=== PATIENT | female | born 2000 | race Caucasian/White ===

== ENCOUNTER 2020-01-22 18:49 | Inpatient (IN) | payer OTHER ==
[2020-01-22] MEDS ORDERED: TERBUTALINE 1 MG/ML VIAL SQ PRN (19:26)
[2020-01-22] MEDS ORDERED: LIDOCAINE 0.5% (PF) 5 MG/ML (50 ML SDV) SQ PRN (19:26)
[2020-01-22] MEDS ORDERED: OXYTOCIN 10 UNIT/ML 1 ML VIAL IM PRN (19:26)
[2020-01-22] MEDS ORDERED: CARBOPROST TROMETHAMINE 250 MCG/ML 1 ML AMP IM PRN (19:26)
[2020-01-22] MEDS ORDERED: METHYLERGONOVINE 0.2 MG/ML 1 ML AMP IM PRN (19:26)
[2020-01-22] MEDS ORDERED: LACTATED RINGERS 1,000 ML IV SCH (19:30)
[2020-01-22 19:36] LABS: Basophils % (A) 0 %; Eosinophils # (A) 0.2 k/uL (0-0.7); Eosinophils % (A) 1 %; HCT 36.3 % (34.0-46.0); Lymphocytes # (A) 1.4 k/uL (1.0-4.8); Lymphocytes % (A) 12 %; MCH 29.4 pg (25.0-35.0); MCV 88.9 fL (80.0-100.0); Mean Platelet Volume 7.1; Monocytes # (A) 0.2 k/uL (0-1.0); Monocytes % (A) 2 %; Neutrophils # (A) 9.8 k/uL (1.3-7.7); Neutrophils % (A) 83 %; Platelet Count 267 k/uL (150-450); RBC 4.09 m/uL (3.80-5.40); WBC 11.8 k/uL (4.0-11.0)
[2020-01-22] MEDS ORDERED: BENZOCAINE/MENTHOL SPRAY 1 GM/SPRAY AEROSOL TOPICAL PRN (20:13)
[2020-01-22] MEDS ORDERED: ZOLPIDEM 5 MG TAB PO PRN (20:13)
[2020-01-22] MEDS ORDERED: WITCH HAZEL 1 EACH MED..PAD TOPICAL PRN (20:13)
[2020-01-22] MEDS ORDERED: diphenhydrAMINE 50 MG CAP PO PRN (20:13)
[2020-01-22] MEDS ORDERED: ACETAMINOPHEN TAB 325 MG TAB PO PRN (20:13)
[2020-01-22] MEDS ORDERED: IBUPROFEN 600 MG TAB PO PRN (20:13)
[2020-01-22] MEDS ORDERED: HYDROcodone/APAP 5-325MG 1 EACH TAB PO PRN (20:13)
[2020-01-22] MEDS ORDERED: HYDROCORTISONE 2.5% RECTAL CREAM 30 GM TUBE RECTAL PRN (20:13)
[2020-01-22] MEDS ORDERED: LANOLIN CREAM 5 GM TUBE TOPICAL PRN (20:13)
[2020-01-22] MEDS ORDERED: diphenhydrAMINE 25 MG CAP PO PRN (20:13)
[2020-01-22] MEDS ORDERED: SIMETHICONE 80 MG CHEWABLE PO PRN (20:13)
[2020-01-22] MEDS ORDERED: diphenhydrAMINE 50 MG/ML 1 ML VIAL IVP PRN ×2 (20:13)
[2020-01-22] MEDS ORDERED: OXYTOCIN 20 UNITS/1000 ML NS 1,000 ML IV SCH (20:15)
--- NOTE | 2020-01-22 20:27 | P.HPOB ---
History of Present Illness H&P Date: 01/22/20 Chief Complaint: IUP at 37 1/7 weeks, Active labor This is a pleasant 19-year-old 1 para 0 at 37 and 1/sevenths weeks with an estimated due date of 02/11/20 based on last menstrual period equal to a 20 week ultrasound. Patient presents to labor and delivery today with complaints of regular strong contractions. Patient was seen today in the office denied contractions at that time. Patient denies loss of fluid but notes vaginal bleeding since contractions had begun. Patient has been receiving routine care since 11 weeks. care has been essentially uncomplicated. Patient notes good movement today. On blood work shows a blood type of O+, rubella immune, RPR nonreactive, hepatitis B surface antigen negative, HIV negative, GBS negative. Review of Systems Constitutional: Denies chills, Denies fatigue, Denies fever Ears, nose, mouth and throat: Denies headache Cardiovascular: Reports leg edema Respiratory: Denies dyspnea Gastrointestinal: Denies constipation, Denies diarrhea, Denies nausea, Denies vomiting Genitourinary: Reports Past Medical History Past Medical History: No Reported History History of Any Multi-Drug Resistant Organisms: None Reported Past Surgical History: No Surgical Hx Reported Past Psychological History: No Psychological Hx Reported Smoking Status: Current every day smoker Past Alcohol Use History: Occasional Past Drug Use History: Marijuana Medications and Allergies Home Medications Medication Instructions Recorded Confirmed Type Pnv No.95/Ferrous Fum/Folic AC 1 each PO DAILY 01/22/20 01/22/20 History [ Multivitamin Tablet] Allergies Allergy/AdvReac Type Severity Reaction Status Date / Time No Known Allergies Allergy Verified 01/22/20 19:26 Exam Osteopathic Statement: *. No significant issues noted on an osteopathic structural exam other than those noted in the History and Physical/Consult. Intake and Output 01/22/20 01/22/20 01/22/20 06:59 14:59 22:59 Other: Weight 84.368 kg In general this a well-nourished well-developed female in obvious labor. Breathing is noted to nonlabored, heart has regular rhythm, abdomen is gravid, heart tones are be category 1, she is yoselin every 2 minutes. On cervical exam she is 9/100/-1-0 station. Results Result Diagrams: 01/22/20 19:27 Abnormal Lab Results - Last 24 Hours (Table) 01/22/20 Range/Units 19:27 WBC 11.8 H (4.0-11.0) k/uL Neutrophils # 9.8 H (1.3-7.7) k/uL Assessment and Plan (1) Term Current Visit: Yes Status: Acute Code(s): Z34.90 - ENCNTR FOR SUPRVSN OF NORMAL , UNSP, UNSP TRIMESTER SNOMED Code(s): 01483606 (2) Active labor Current Visit: Yes Status: Acute Code(s): QJG5431 - SNOMED Code(s): 350707141 (3) SROM (spontaneous rupture of membranes) Current Visit: Yes Status: Acute Code(s): SLX2796 - SNOMED Code(s): 861373979 Plan: Patient is admitted to labor and delivery with anticipation of spontaneous vaginal delivery.
--- NOTE | 2020-01-22 20:32 | P.PROBDLV ---
Vaginal Delivery Note - . Vaginal Delivery Note: This pleasant 19-year-old 1 para 0 at 37 and one sevenths weeks presented to labor and delivery in active labor. Patient states at some point today. Contractions became regular, she is unsure of her water broke during this time. Patient is known group beta strep positive. On initial physical exam she was noted to be 8-9 cm. Patient was placed in the labor and delivery suite noted to be complete and began pushing patient had a normal spontaneous vaginal delivery of a viable female at 19:57 with a weight of 7 lbs. 0 oz. Apgars of 8 and 9 at one and 5 minutes respectively. Patient was noted to be in the occiput anterior presentation with a compound right hand, nuchal/body cord was delivered through. After two-minute delay the umbilical cords doubly clamped and cut and the was placed on the maternal abdomen. The placenta was then delivered spontaneously intact. Ears is noted be firm and below the umbilicus. On section the patient's vaginal vault a first 3 vaginal laceration was noted this was repaired in the usual fashion with a xilxoe-sm-zhfbu of 3-0 Rapide. Hemostasis was appreciated. No further lacerations were noted on inspection the vaginal vault. Estimated blood loss 200 mL, all counts were correct 2 Patient and infant tolerated delivery well and are resting complete.
[2020-01-23 05:58] LABS: Basophils % (A) 0 %; Eosinophils # (A) 0.1 k/uL (0-0.7); Eosinophils % (A) 0 %; HCT 28.3 % (34.0-46.0); Lymphocytes # (A) 1.6 k/uL (1.0-4.8); Lymphocytes % (A) 12 %; MCH 29.8 pg (25.0-35.0); MCHC 33.8 g/dL (31.0-37.0); MCV 88.1 fL (80.0-100.0); Monocytes # (A) 0.5 k/uL (0-1.0); Monocytes % (A) 4 %; Neutrophils % (A) 83 %; Platelet Count 258 k/uL (150-450); RBC 3.22 m/uL (3.80-5.40); RDW 13.1 % (11.5-15.5); WBC 13.4 k/uL (4.0-11.0)
[2020-01-23 06:16] LABS: HGB 9.6 gm/dL (11.4-16.0)
--- NOTE | 2020-01-23 07:50 | P.PNOBGVD ---
Subjective - Subjective Patient reports: Reports appetite normal, Reports voiding normally, Reports pain well controlled, Reports ambulating normally : doing well Objective - Latest Vital Signs Latest vital signs: Vital Signs Temp Pulse Resp BP Pulse Ox 01/23/20 04:00 98.2 F 99 18 106/61 99 01/23/20 00:00 97.6 F 106 H 18 122/73 98 01/22/20 22:10 98.3 F 97 16 129/63 01/22/20 21:40 98.2 F 91 16 103/57 01/22/20 21:10 97.4 F L 108 H 16 129/77 01/22/20 20:55 97.4 F L 86 16 123/63 01/22/20 20:40 97.5 F L 88 16 133/74 01/22/20 20:25 97.3 F L 111 H 16 134/72 01/22/20 20:10 97.4 F L 108 H 18 149/67 01/22/20 19:24 97.0 F L 97 20 123/85 98 Intake and Output 01/22/20 01/23/20 01/23/20 22:59 06:59 14:59 Output Total 200 Balance -200 Output: Estimated Blood Loss 200 Other: # Voids 1 1 Weight 84.368 kg - Exam Extremities: Present: normal Abdomen: Present: normal appearance, soft Uterus: Present: normal, firm (The uterine fundus is tonic and nontender below the umbilicus.) - Labs Labs: Abnormal Lab Results - Last 24 Hours (Table) 01/22/20 01/23/20 Range/Units 19:27 05:19 WBC 11.8 H 13.4 H (4.0-11.0) k/uL RBC 3.22 L (3.80-5.40) m/uL Hgb 9.6 L D (11.4-16.0) gm/dL Hct 28.3 L (34.0-46.0) % Neutrophils # 9.8 H 11.0 H (1.3-7.7) k/uL Assessment and Plan (1) Normal spontaneous vaginal delivery Current Visit: Yes Status: Acute Code(s): O80 - ENCOUNTER FOR FULL-TERM UNCOMPLICATED DELIVERY SNOMED Code(s): 18331649 Plan: Continue routine care. The patient will likely require another day in the hospital secondary to group B strep positivity and lack of antibody prophylaxis for the infant. I would anticipate discharge home tomorrow.
[2020-01-23] MEDS ORDERED: PRENATAL VIT-IRON-FOLIC ACID 1 EACH CAP PO SCH (09:00)
[2020-01-23] MEDS: SENNOSIDES-DOCUSATE SODIUM 1 EACH TAB PO SCH ×2 (19:01→20:41)
[2020-01-24] MEDS: SENNOSIDES-DOCUSATE SODIUM 1 EACH TAB PO SCH (07:48)
[2020-01-24 08:09] VITALS: BP 129/72; PULSE 74; RESP 16; TEMP 98
--- NOTE | 2020-01-24 11:32 | P.DS ---
Providers Date of admission: 01/22/20 19:16 Expected date of discharge: 01/24/20 Attending physician: Irvin Bourne Primary care physician: Stated None - Discharge Diagnosis(es) (1) Normal spontaneous vaginal delivery Current Visit: Yes Status: Acute Hospital Course: The patient is a 19-year-old 1 para 0 admitted at 37 and one sevenths weeks by good dating parameters. She is admitted to labor and delivery in early active labor with all signs reassuring. Her was uncomplicated and group B strep status was positive. As result, she had antibiotic prophylaxis started. On labor and delivery, she progressed very quickly to complete and then pushed to a normal spontaneous vaginal delivery of a viable 7 lbs. 0 oz. baby boy with Apgars of 8 at 1 minute and 9 at 5 minutes. Her course was unremarkable with vital signs being stable and her temperature was afebrile throughout. She was deemed stable for discharge on day #2 and was discharged home to follow-up in the office in 6 weeks' time routinely. Discharge instructions included calling for any significantly increased bleeding or foul-smelling lochia, significantly increased fever or abdominal pain, perineal complaints, breast complaints, or anything else that concerned her. She was additionally instructed to have nothing in the vagina for at least 6 weeks time to include intercourse. She understood her instructions and agrees follow up as noted above. Discharge medications included continued vitamins as she has opted to breast-feed as well as yvlo-zqe-twsytso analgesic pain medications. Maternal blood type is O+ and rubella status is immune. Procedures: #1. Normal spontaneous vaginal delivery #2. Repair of perineal laceration #3. Antibiotic prophylaxis Patient Condition at Discharge: Good Plan - Discharge Summary New Discharge Prescriptions: No Action Pnv No.95/Ferrous Fum/Folic AC [ Multivitamin Tablet] 1 each PO DAILY Discharge Medication List Pnv No.95/Ferrous Fum/Folic AC [ Multivitamin Tablet] 1 each PO DAILY 01/22/20 [History] Follow up Appointment(s)/Referral(s): Irvin Bourne MD [STAFF PHYSICIAN] - 6 Weeks Discharge Disposition: HOME SELF-CARE
== END 2020-01-24 12:42 | disposition home or self-care (01) | DRG 806 ==
LOC: FBPOP 18:49 → 4FBP 19:16
PROVIDERS: ADMIT Obstetrics & Gynecology Obstetrics; ATTEND Obstetrics & Gynecology
PROC: 10E0XZZ Delivery of Products of Conception, External Approach (ICD-10-PCS; principal; 2020-01-22)
PROC: 0HQ9XZZ Repair Perineum Skin, External Approach (ICD-10-PCS; principal; 2020-01-22)
DX: O32.6XX0 Maternal care for compound presentation, not applicable or unspecified (principal); O71.4 Obstetric high vaginal laceration alone; Z37.0 Single live birth; O99.824 Streptococcus B carrier state complicating childbirth; O99.334 Smoking (tobacco) complicating childbirth; F17.200 Nicotine dependence, unspecified, uncomplicated; Z3A.37 37 weeks gestation of pregnancy; Z79.899 Other long term (current) drug therapy
CPT/HCPCS: 85025; 86850; 86900; 86901

== ENCOUNTER 2021-08-05 20:42 | Emergency (ER) | payer OTHER ==
[2021-08-05 21:12] VITALS: BP 123/77
[2021-08-05] MEDS ORDERED: ACETAMINOPHEN TAB 325 MG TAB PO STA (22:40)
[2021-08-05] MEDS ORDERED: KETOROLAC 15 MG/ML 1 ML VIAL IM STA (22:40)
[2021-08-05] MEDS ORDERED: DEXAMETHASONE SOD PHOSPHATE 10 MG/ML 1 ML VIAL IM STA (22:40)
--- NOTE | 2021-08-05 22:42 | ED ---
General Adult HPI - General Chief complaint: Fever Stated complaint: Wants Covid test Time Seen by Provider: 08/05/21 21:56 Source: patient Mode of arrival: ambulatory Limitations: no limitations - History of Present Illness Initial comments: 20-year-old female patient presents to the emergency department today for evaluation of fever, body aches, chills. States she also has sore throat and painful swallowing. States that recently her child had ojyw-dupt-pvb-mouth disease and she is concerned she may have this that she did notice a rash starting on her palms today. She was sent in by her job to have a test for occult mid. She did take DayQuil prior to coming in and states she feels it did help her symptoms somewhat. She denies any significant cough or congestion. Denies ear pain. Denies nausea or vomiting. Denies any chance of . Patient denies any recent chest pain, abdominal pain, diarrhea, constipation, back pain, numbness, tingling, dizziness, weakness, hematuria, dysuria, urinary urgency, urinary frequency, headache, visual changes, or any other complaints. - Related Data Home Medications Medication Instructions Recorded Confirmed Pnv No.95/Ferrous Fum/Folic AC 1 each PO DAILY 01/22/20 01/22/20 [ Multivitamin Tablet] Allergies Allergy/AdvReac Type Severity Reaction Status Date / Time No Known Allergies Allergy Verified 08/05/21 21:12 Review of Systems ROS Statement: Those systems with pertinent positive or pertinent negative responses have been documented in the HPI. ROS Other: All systems not noted in ROS Statement are negative. Past Medical History Past Medical History: No Reported History History of Any Multi-Drug Resistant Organisms: None Reported Past Surgical History: No Surgical Hx Reported Past Anesthesia/Blood Transfusion Reactions: No Reported Reaction Past Psychological History: No Psychological Hx Reported Smoking Status: Never smoker Past Alcohol Use History: Occasional Past Drug Use History: Marijuana - Past Family History Mother Family Medical History: No Reported History General Exam Limitations: no limitations General appearance: alert, in no apparent distress, other (This is a well- developed, well-nourished adult female patient in no acute distress.) ENT exam: Present: mucous membranes moist. Absent: normal exam, normal oropharynx (Pharyngeal exam reveals ulcerated lesions to the soft palate, posterior pharynx, and the tonsils. Tonsils are symmetric uvula is midline.) Neck exam: Present: normal inspection. Absent: tenderness, meningismus, lymphadenopathy Respiratory exam: Present: normal lung sounds bilaterally. Absent: respiratory distress, wheezes, rales, rhonchi, stridor Cardiovascular Exam: Present: regular rate, normal rhythm, normal heart sounds. Absent: systolic murmur, diastolic murmur, rubs, gallop, clicks GI/Abdominal exam: Present: soft, normal bowel sounds. Absent: distended, tenderness, guarding, rebound, rigid Neurological exam: Present: alert, oriented X3, CN II-XII intact Psychiatric exam: Present: normal affect, normal mood Skin exam: Present: warm, dry, intact, normal color. Absent: rash Course Vital Signs 08/05/21 08/05/21 21:07 22:59 Temperature 101.7 F H 100.8 F H Pulse Rate 113 H 100 Respiratory 18 20 Rate Blood Pressure 123/77 O2 Sat by Pulse 95 96 Oximetry Medical Decision Making - Medical Decision Making 20-year-old female patient presented to the emergency department today for evaluation of fever and sore throat. Physical examination did reveal lesions over the soft palate, oropharynx, and hands consistent with axtr-djdw-rnb-mouth. Her child recently did have this condition. Discussed alternate Tylenol Motrin. She'll be given a dose of Toradol and Decadron here. She'll be discharged follow-up with the time care physician for recheck in 1-2 days. Return parameters discussed in detail. She verbalizes understanding and agrees with this plan. My attending is Dr. Cortez. - Lab Data Lab Results 08/05/21 Range/Units 21:14 Coronavirus (PCR) Not Detected (Not Detectd) Disposition Clinical Impression: Hand, foot and mouth disease Disposition: HOME SELF-CARE Condition: Good Instructions (If sedation given, give patient instructions): Fever in Adults (ED), Hand, Foot, and Mouth Disease (ED) Additional Instructions: Alternate Tylenol and Motrin. Intake will soothing foods. Avoid spicy or tart foods. Follow-up with the primary care physician for recheck in 1-2 days. Return for any new, worsening, or concerning symptoms. Is patient prescribed a controlled substance at d/c from ED?: No Referrals: None,Stated [Primary Care Provider] - 1-2 days Time of Disposition: 22:42
[2021-08-05 23:02] VITALS: PULSE 100; RESP 20; TEMP 100.8
== END 2021-08-05 23:00 | disposition home or self-care (01) ==
LOC: EC 20:42
DX: R13.10 Dysphagia, unspecified (principal); B08.4 Enteroviral vesicular stomatitis with exanthem; Z20.822 Contact with and (suspected) exposure to COVID-19
CPT/HCPCS: 87635; 99284; 96372 ×2; J1100; J1885